=== PATIENT | male | born 1975 ===

== ENCOUNTER 2025-01-03 06:30 | Day surgery (SDC) | payer OTHER ==
[2024-12-31 10:11] LABS: BASO % 1.4 % (0.1-1.2); EOS # 1.26 (0.04-0.54); HEMATOCRIT 40.4 % (40.1-51.0); HEMOGLOBIN 14.1 g/dL (13.7-17.5); LYMPH # 1.98 (1.18-3.74); LYMPH % 23.5 % (19.3-53.1); MEAN CORPUSCULAR HEMOGLOBIN 30.4 pg (25.6-32.2); MONO # 0.84 (0.24-0.82); NEUT % 49.9 % (34.0-71.1); PLATELET COUNT 251 K/uL (163-369); RED BLOOD COUNT 4.64 M/uL (4.63-6.08); RED CELL DISTRIBUTION WIDTH 11.3 % (11.6-14.4)
[2024-12-31 10:45] VITALS: BP 132/81
[2024-12-31 10:53] LABS: INR 1.07; PARTIAL THROMBOPLASTIN TIME 25.6 SECONDS (22.0-34.0); PROTHROMBIN TIME 11.6 SECONDS (9.0-11.5)
[2024-12-31 11:59] LABS: ALBUMIN 4.3 gm/dL (3.4-5.0); BILIRUBIN TOTAL 0.62 mg/dL (0.3-1.2); CALCIUM 10.6 mg/dL (8.5-10.1); CREATININE SERUM 0.85 mg/dL (0.70-1.30); GFR 95.03; GLOBULINA 3.7 G/DL (2.4-3.5); POTASSIUM 3.87 mEq/L (3.5-5.1)
[~2025-01-03] VITALS: Ht 198.1 cm; Wt 108.0 kg
[2025-01-03] MEDS ORDERED: PIPERACILLIN/TAZOBACTAM SODIUM 3.375 GM VIAL IV ONE (12:13)
== END 2025-01-03 14:35 | disposition home or self-care (01) ==
LOC: CIR.AMB 06:30
PROVIDERS: ATTEND Internal Medicine
DX: K22.89 Other specified disease of esophagus (principal); R93.3 Abnormal findings on diagnostic imaging of other parts of digestive tract